=== PATIENT | female | born 1955 | race Caucasian/White ===

== ENCOUNTER 2021-11-27 16:31 | Emergency (ER) | payer MEDICARE, OTHER ==
[2021-11-27] MEDS ORDERED: Acetaminophen 325 MG Tab PO ONE (17:00)
== END 2021-11-27 18:31 | disposition home or self-care (01) ==
LOC: JD.ED 16:31
DX: S09.90XA Unspecified injury of head, initial encounter (principal); W01.198A Fall on same level from slipping, tripping and stumbling with subsequent striking against other object, initial encounter
CPT/HCPCS: 70450; 70486; 73030; 73600; 99284; A9270